=== PATIENT | female | born 1975 | race Caucasian/White ===

== ENCOUNTER 2021-08-30 | Day surgery (SDC) | payer BC, SELFPAY ==
[2021-08-23 09:30] VITALS: BMI 35.9
--- NOTE | 2021-08-23 09:40 | PC.NURSE ---
Report to the Outpatient Waiting Room, entrance under the green pavilion located off [facility], at time 0600 on date 08/30/21. OR Time: 0730. - You and your visitor will be asked a series of questions to screen for COVID 19 for your protection. - Only one visitor is allowed at this time. - The patient visitor is requested to leave or wait in car when not with patient. - A mask is required within the hospital. Patients may have clear liquids (water, carbonated beverages, clear teas, apple juice) until 3 hours prior to surgery with a maximum of 20 ounces. - No food from midnight until time of surgery Take the following medications with a SIP of water the morning of surgery: NONE Medications to discontinue per physician: N/A Date to take last dose: N/A Please no make-up, nail liberian, hairspray, perfume, deodorant, or body powder the day of surgery. No jewelry (including any body piercings) or valuables the day of surgery, leave them at home. Please take a shower or bath the night before, or the morning of, surgery with an antibacterial soap. Wear comfortable, loose fitting clothing. - Jewelry must be removed prior to entering the operating room. Rings and piercings that are not removed may be cut off. - The hospital will not accept responsibility for valuables. - Please leave all valuables, including medications, at home the day of surgery. If you are going home after surgery, a licensed log driver must drive you home. - NO public transportation without another adult. - We recommend that an adult stay with you for 24 hours following discharge. - We also recommend that you do not drive, make important decision, drink alcoholic beverages, or take any drugs that were not prescribed by your health care provider for at least 24 hours after your discharge time. Follow any additional instructions given to you from your surgeon. If you or anyone in your household have experienced Covid symptoms in the past week, please notify your surgeon or the nurse liaison at the phone number below for possible testing. Telephone instructions given to ELVA GUERRA and asked if any additional questions and then verbalized understanding. Patient advised to call surgeon office or pre surgery nurse liaison [phone] if any additional questions.
--- NOTE | 2021-08-29 14:05 | WPDANESEPPF ---
Anes - Initial Pre Proc Eval Procedure: Operation Date: 08/30/21 07:30 Proposed Procedures p Bilateral Breast Reduction - Brent Bar MD <Irineo Raymundo MD - Last Filed: 09/16/21 11:15> Date/Time: 08/29/21 14:05 <Irineo Raymundo MD - Last Filed: 09/16/21 11:15> Surgeon: Brent Bar MD <Irineo Raymundo MD - Last Filed: 09/16/21 11:15> Pre Op Diagnosis: macromastia <Irineo Raymundo MD - Last Filed: 09/16/21 11:15> Patient Data Age: 46 Gender: F Height: 1.78 m Weight: 113.4 kg <Irineo Raymundo MD - Last Filed: 09/16/21 11:15> Allergies Allergy/AdvReac Type Severity Reaction Status Date / Time potassium chloride Allergy Mild Hives Verified 09/14/21 10:34 caffeine AdvReac Intermediate Palpitation Verified 09/14/21 10:34 s seasonal AdvReac Congested Uncoded 09/14/21 10:34 <Irineo Raymundo MD - Last Filed: 09/16/21 11:15> Home Medications Medication Instructions Recorded Confirmed Type celecoxib 200 mg capsule 200 mg PO HS 10/06/20 08/30/21 History etonogestrel 0.12 mg-ethinyl 1 vag ring vaginal ONCE 10/06/20 08/23/21 History estradiol 0.015 mg/24 hr vaginal ring pantoprazole 40 mg tablet,delayed 1 tablet PO HS 10/06/20 08/30/21 History release trazodone 50 mg tablet 25 mg PO QHS PRN Insomnia 10/06/20 08/30/21 History venlafaxine 150 mg 150 mg PO HS 10/06/20 08/30/21 History capsule,extended release 24 hr docusate sodium 100 mg capsule 100 mg PO BID #14 caps 08/22/21 08/23/21 Rx (Colace) ondansetron HCl 4 mg tablet 4 mg PO Q6H PRN nausea and 08/22/21 08/23/21 Rx vomiting #30 tabs lisinopril 20 1 tablet PO HS 08/23/21 08/30/21 History mg-hydrochlorothiazide 25 mg tablet oxycodone-acetaminophen 5 mg-325 1 tablet PO Q6H PRN pain #30 tabs 08/31/21 Rx mg tablet (Percocet) <Irineo Raymundo MD - Last Filed: 09/16/21 11:15> Patient hx anesthesia problems: other (jaw pain) <Juan Goldsmith MD - Last Filed: 08/30/21 07:18> Family hx anesthesia problems: none <Juan Goldsmith MD - Last Filed: 08/30/21 07:18> Results Review: All pre-operative results and documents have been reviewed as part of the pre-operative evaluation. <Irineo Raymundo MD - Last Filed: 09/16/21 11:15> [facility] Past Medical History Medical History: Medical History (Reviewed 09/14/21 @ 10:35 by Maricruz Amado [facility]) Acid reflux Anemia Anxiety Chronic pain syndrome High blood pressure Hx of migraines Obesity BOB (obstructive sleep apnea) <Irineo Raymundo MD - Last Filed: 09/16/21 11:15> Social History Social History: Social History (Reviewed 09/14/21 @ 10:35 by Maricruz Amado [facility]) Smoking status: Never smoker Alcohol intake: never Substance use: never Substance use type: does not use Spiritual care concerns: No <Irineo Raymundo MD - Last Filed: 09/16/21 11:15> Anes - Eval Final PreProcedure Day of Procedure 08/29/21 14:05 <Irineo Raymundo MD - Last Filed: 09/16/21 11:15> Patient weight: obese <Irineo Raymundo MD - Last Filed: 09/16/21 11:15> Heart: regular rate and rhythm <Irineo Raymundo MD - Last Filed: 09/16/21 11:15> Lungs: clear to auscultation <Irineo Raymundo MD - Last Filed: 09/16/21 11:15> Airway: Mallampati scale class II <Irineo Raymundo MD - Last Filed: 09/16/21 11:15> Neurological: alert and oriented <Irineo Raymundo MD - Last Filed: 09/16/21 11:15> Last oral intake: >/= 8 hours <Irineo Raymundo MD - Last Filed: 09/16/21 11:15> ASA classification: III <Irineo Raymundo MD - Last Filed: 09/16/21 11:15> Emergent: no <Irineo Raymundo MD - Last Filed: 09/16/21 11:15> Anesthetic plan: proceed <Irineo Raymundo MD - Last Filed: 09/16/21 11:15> Anesthesia type and monitoring: general ETT and standard monitoring <Irineo Raymundo MD - Last Filed: 09/16/21 11:15> Results Review:
[2021-08-30] VITALS (10 sets, daily range): BP systolic 108–135; BP diastolic 54–75; PULSE 68–94; RESP 16–20; TEMP 35.9–37.4; O2SAT 95–100
--- NOTE | 2021-08-30 05:55 | ECG_ITS ---
Measurements Intervals Elmo Rate: 75 P: 28 TN: 179 QRS: -1 QRSD: 108 T: 18 QT: 395 QTc: 442 Interpretive Statements SINUS RHYTHM POSSIBLE LEFT ATRIAL ENLARGEMENT INCOMPLETE RIGHT BUNDLE BRANCH BLOCK LOW QRS VOLTAGE IN PRECORDIAL LEADS BASELINE ARTIFACT- II, III, AVF BORDERLINE ECG Electronically Signed On 08-30-2021 7:58:55 CDT by Adis Reyna D.O.
[2021-08-30 06:43] LABS: Urine Cotinine NEGATIVE
[2021-08-30] MEDS: LACTATED RINGERS 1,000 ML 30 ML IV CONT ×2 (06:50→10:48)
[2021-08-30 07:05] LABS: Anion Gap 7 mmol/L (8-16); Blood Urea Nitrogen 17 mg/dL (7-17); Calcium 8.9 mg/dL (8.4-10.2); Carbon Dioxide 26 mmol/L (22-30); Chloride 108 mmol/L (98-107); Estimated CRCL calculation 119 ml/min; Estimated Glomerular Filt Rate > 60; Glucose 99 mg/dL (65-110); Potassium 3.5 mmol/L (3.4-5.0); Sodium 141 mmol/L (137-145)
--- NOTE | 2021-08-30 07:11 | P.OP_ITS ---
Procedure Note - Detailed Date of Procedure 08/30/21 Pre-op Diagnosis macromastia Post-op Diagnosis Same Procedure Performed Bilateral reduction mammaplasty Surgeon Brent Bar MD Anesthesia General Findings Inverted T Free nipple graft Right breast Tissue removed 2221.9 grams Lipoaspirate 200 cc Left breast Tissue removed 2518.6 grams Lipoaspirate 200 cc Description of Procedure She is here today for bilateral breast reduction. Previously and again today the risks, benefits, alternatives were discussed in extensive detail. I wanted her to be very realistic about the risks involved as well as expectations. After hearing all of her options she would like to proceed with free nipple graft. This was discussed extensively making sure she was well informed. We discussed aftercare and what to monitor for. She understands we can never guar antee final breast size and there will always be asymmetry. I was very upfront and honest about the risks of sensation change (she currently has no nipple sensation) and even nipple loss (). Made sure answered all of her questions to her satisfaction today and consent was obtained. She was marked in the preoperative holding area with their verification. The patient was taken to the operating room placed supine on the operating table. Anesthesia was provided by anesthesiology. She was prepped and draped in a standard sterile fashion. A surgical time-out was taken. Stab incisions were made and I tumessed with a tumescent solution. I marked out the nipple-areolar complex at 42 mm. This was excised just deep to dermis and kept in moist gauze. I then removed the inferior portion of the breast as well as the central keel to get shape based on preoperative planning. At this point copiously irrigated with saline solution and verified a strict hemostasis. I reapproximated the pillars using a 2-0 PDS. I tailor tacked the breast into place with renaldo. She was placed in a sitting position. I verified the nipple-areolar complex position based on preoperative markings, intraoperative measurements, and observation which were in full agreement. This nipple-areolar complex was marked at 42 mm in size. Suction lipectomy using a 5mm basket cannula based on S.A.F.E. technique was completed based on pre-operative planning, intraoperative observation, and rolling pinch test. I then placed supine and de-epithelialized the new NAC location. Nipple-areolar complex was inset with 5-0 Chromic. Tie over bolster created with xeroform and cotton which was sutured into place with 3-0 Nylon. I closed IMF deep with 1 strattafix. I closed the vertical incision with 3-0 Monocryl in the IMF with 3- 0 stratafix. Then everything was closed using a running subcuticular 4-0 Monocryl followed by Steri-Strips. A dressing was placed followed by surgical bra. Patient was awoke and taken to PACU without difficulty. All instrument sponge counts were correct at the end of the case. Estimated Blood Loss 75 Drains No Packing No Pathology Yes (Bilateral breast tissue) Complications No immediate complications Condition Stable Disposition PACU
--- NOTE | 2021-08-30 07:11 | WPDHPUPDATE1 ---
History and Physical Update Update Date/Time: 08/30/21 07:11 History and Physical has been reviewed, including an updated exam of the patient. There are NO changes in the patient's condition. Risks, benefits, and alternatives have been discussed and questions answered. Patient agrees to proceed with procedure.
--- NOTE | 2021-08-30 07:15 | WPDANESEPPF ---
Anes - Initial Pre Proc Eval Procedure: Operation Date: 08/30/21 07:30 Proposed Procedures p Bilateral Breast Reduction - Brent Bar MD Date/Time: 08/30/21 07:15 Surgeon: Brent Bar MD Pre Op Diagnosis: macromastia Patient Data Age: 46 Gender: F Height: 1.78 m Weight: 113.3 kg Last Vital Signs Temp 37.4 C 08/30/21 06:54 Pulse 82 08/30/21 06:54 Resp 16 08/30/21 06:54 BP 135/75 08/30/21 06:54 Pulse Ox 97 08/30/21 06:54 O2 Del Method Room Air 08/30/21 06:54 Allergies Allergy/AdvReac Type Severity Reaction Status Date / Time potassium chloride Allergy Mild Hives Verified 08/30/21 06:29 caffeine AdvReac Intermediate Palpitation Verified 08/30/21 06:30 s seasonal AdvReac Congested Uncoded 08/30/21 06:29 Home Medications Medication Instructions Recorded Confirmed Type celecoxib 200 mg capsule 200 mg PO HS 10/06/20 08/30/21 History etonogestrel 0.12 mg-ethinyl 1 vag ring vaginal ONCE 10/06/20 08/23/21 History estradiol 0.015 mg/24 hr vaginal ring pantoprazole 40 mg tablet,delayed 1 tablet PO HS 10/06/20 08/30/21 History release trazodone 50 mg tablet 25 mg PO QHS PRN Insomnia 10/06/20 08/30/21 History venlafaxine 150 mg 150 mg PO HS 10/06/20 08/30/21 History capsule,extended release 24 hr docusate sodium 100 mg capsule 100 mg PO BID #14 caps 08/22/21 08/23/21 Rx (Colace) hydrocodone 5 mg-acetaminophen 325 1 tablet PO Q6H PRN pain #30 tabs 08/22/21 08/23/21 Rx mg tablet ondansetron HCl 4 mg tablet 4 mg PO Q6H PRN nausea and 08/22/21 08/23/21 Rx vomiting #30 tabs lisinopril 20 1 tablet PO HS 08/23/21 08/30/21 History mg-hydrochlorothiazide 25 mg tablet Laboratory Tests 08/30/21 08/30/21 06:19 06:31 Sodium 141 mmol/L mmol/L (137-145) Potassium 3.5 mmol/L mmol/L (3.4-5.0) Chloride 108 mmol/L H mmol/L (98-107) Carbon Dioxide 26 mmol/L mmol/L (22-30) Anion Gap 7 mmol/L L mmol/L (8-16) BUN 17 mg/dL mg/dL (7-17) Creatinine 0.70 mg/dL mg/dL (0.7-1.0) Estim Creat Clear Calc 119 ml/min ml/min Estimated GFR > 60 (59 - ) Glucose 99 mg/dL mg/dL (65-110) Calcium 8.9 mg/dL mg/dL (8.4-10.2) Cotinine Negative Patient hx anesthesia problems: other (severe jaw pain from jaw lift) Family hx anesthesia problems: none Results Review: All pre-operative results and documents have been reviewed as part of the pre-operative evaluation. [facility] Past Medical History Medical History Acid reflux Anemia Anxiety Chronic pain syndrome High blood pressure Hx of migraines Obesity BOB (obstructive sleep apnea) Social History Social History Smoking status: Never smoker Alcohol intake: never Substance use: never Substance use type: does not use Living arrangements: with family Spiritual care concerns: No Anes - Eval Final PreProcedure Day of Procedure 08/30/21 07:15 Patient weight: obese Heart: regular rate and rhythm Lungs: clear to auscultation Airway: Mallampati scale class II Neurological: alert and oriented Last oral intake: >/= 8 hours ASA classification: III Emergent: no Anesthetic plan: proceed Anesthesia type and monitoring: general LMA and standard monitoring Results Review: All pre-operative results and documents have been reviewed as part of the pre-operative evaluation. Informed Consent: The patient's anesthetic plan and its attendant risks and benefits were discussed with the patient/family/POA. Questions were solicited and answers provided to the satisfaction of the patient/family/POA.
[2021-08-30] MEDS: ceFAZolin 2 GM/D5W 50 ML 2 GM/50 ML BAG IVPB (07:35)
[2021-08-30] MEDS: TRANEXAMIC ACID 1,000MG/ISO100 1,000 MG/100 ML BAG 200 MG IVPB (07:46)
[2021-08-30] MEDS: LACTATED RINGERS IRRIG 1,000 ML, LIDOCAINE HCL 1% LOCAL INJ 50 ML, EPINEPHrine HCL INJ ... INFILTRATE (08:00)
[2021-08-30] MEDS: fentaNYL CITRATE INJ (*CRX) 100 MCG/2 ML VIAL 25 MCG IV PUSH ×5 (11:22→12:47)
[2021-08-30] MEDS: oxyCODONE HCL (*CRX) 5 MG TAB IR PO (12:22)
== END 2021-08-30 13:43 | disposition home or self-care (01) ==
PROVIDERS: PCP Family Medicine; Visit Provider Surgery Plastic and Reconstructive Surgery
PROC: 0HBV0ZZ Excision of Bilateral Breast, Open Approach (ICD-10-PCS; CPT 19318; principal; 2021-08-30 07:30)
PROC: (CPT 15877; 2021-08-30 07:30)
DX: N62 Hypertrophy of breast (principal); I10 Essential (primary) hypertension; K21.9 Gastro-esophageal reflux disease without esophagitis; G47.33 Obstructive sleep apnea (adult) (pediatric); G89.4 Chronic pain syndrome; Z79.891 Long term (current) use of opiate analgesic; E66.9 Obesity, unspecified; Z68.35 Body mass index [BMI] 35.0-35.9, adult
CPT/HCPCS: 19318; 80048; 80307; 88305; 93005; A9270; J0171; J0690; J1100; J1170; J2250; J2405; J2704; J3010; J7120